=== PATIENT | male | born 1955 | race Caucasian/White ===

== ENCOUNTER 2021-11-19 12:53 | Emergency (ER) | payer OTHER | END 2021-11-19 15:04 | disposition home or self-care (01) | LOC: FER 12:53 | DX: G89.18 Other acute postprocedural pain (principal); M79.605 Pain in left leg; Z48.00 Encounter for change or removal of nonsurgical wound dressing; I10 Essential (primary) hypertension; E11.9 Type 2 diabetes mellitus without complications; Z79.84 Long term (current) use of oral hypoglycemic drugs; Z79.899 Other long term (current) drug therapy | CPT/HCPCS: 93971 ==